=== PATIENT | female | born 1985 ===

== ENCOUNTER 2024-07-29 12:26 | Outpatient (CLI) | payer OTHER | END 2024-07-29 12:27 | disposition home or self-care (01) | LOC: PRENATAL 12:26 | PROVIDERS: ATTEND Obstetrics & Gynecology Maternal & Fetal Medicine | DX: O44.00 Complete placenta previa NOS or without hemorrhage, unspecified trimester (principal); O09.529 Supervision of elderly multigravida, unspecified trimester; O34.10 Maternal care for benign tumor of corpus uteri, unspecified trimester; Z3A.28 28 weeks gestation of pregnancy ==

== ENCOUNTER 2024-09-08 23:06 | Inpatient (IN) | payer OTHER ==
[~2024-09-08] VITALS: Ht 154.9 cm; Wt 73.5 kg
[2024-09-08 23:24] VITALS: BP 140/98; O2SAT 98
[2024-09-08] MEDS ORDERED: PRENATAL TABLE1 EAC4 PO (23:37)
[2024-09-08 23:56] LABS: PH,URINE 7.5 (5.0-8.0); URINE APPEARANCE Cloudy; URINE BILIRRUBIN Negative (NEGATIVE); URINE BLOOD Negative; URINE COLOR Dark Yellow; URINE GLUCOSE Negative (NEGATIVE); URINE KETONE Negative (NEGATIVE); URINE LEUKOCYTE Large; URINE NITRATE Negative; URINE PROTEIN Negative (NEGATIVE); URINE UROBILINOGEN 0.2 E.U./dl
[2024-09-08 23:58] LABS: HEMATOCRIT 32.2 % (36.0-45.00); HEMOGLOBIN 11.2 g/dL (12.0-15.00); MEAN CELL VOLUME 88.2 fL (80.00-100.00); MEAN CORPUSCULAR HEMOGLOBIN 30.8 pg (27.00-32.0); MEAN CORPUSCULAR HGB CONC 34.9 g/dl (32.0-36.0); PLATELET COUNT 131 K/uL (150-450); RED BLOOD COUNT 3.64 M/uL (4.00-6.00); RED CELL DISTRIBUTION WIDTH 14.3 % (11.5-14.5)
[2024-09-08 23:59] LABS: URINE BACTERIA 2898.2 uL (0.0-1933); URINE EPITHELIAL CELLS 133.4 uL (0.0-38.8); URINE WBC 369.1 uL (0.0-23.2)
[2024-09-09] VITALS (9 sets, daily range): BP systolic 123–139; BP diastolic 78–89
[2024-09-09] MEDS ORDERED: SODIUM CHLORIDE 0.45 % 1,000 ML IV SCH (00:15)
[2024-09-09 00:35] LABS: URINE CAST 0.44 uL (0.0-1.40); URINE RBC 1.7 uL (0.0-20.8)
[2024-09-09 00:55] LABS: ALBUMIN 2.6 gm/dL (3.4-5.0); BILIRUBIN TOTAL 0.33 mg/dL (0.3-1.2); CALCIUM 8.6 mg/dL (8.5-10.1); CREATININE SERUM 0.51 mg/dL (0.55-1.02); GFR 134.96; GLOBULINA 3.7 G/DL (2.4-3.5); POTASSIUM 3.74 mEq/L (3.5-5.1); TOTAL PROTEIN 6.3 gm/dL (6.4-8.2)
[2024-09-09 01:13] LABS: URIC ACID 3.9 mg/dL (2.5-7.5)
[2024-09-09 08:35] LABS: HEMOGLOBIN 11.2 g/dL (12.0-15.00); MEAN CELL VOLUME 88.5 fL (80.00-100.00); PLATELET COUNT 121 K/uL (150-450); RED BLOOD COUNT 3.62 M/uL (4.00-6.00); RED CELL DISTRIBUTION WIDTH 14.4 % (11.5-14.5)
[2024-09-09] MEDS ORDERED: BETAMETHASONE ACETATE,SOD PHOS 30 MG/5 ML ML IM SCH (12:45)
[2024-09-10 03:24] VITALS: BP 122/83; O2SAT 98
[2024-09-10 06:55] LABS: HEMATOCRIT 33.6 % (36.0-45.00); HEMOGLOBIN 11.2 g/dL (12.0-15.00); MEAN CELL VOLUME 90.2 fL (80.00-100.00); MEAN CORPUSCULAR HGB CONC 33.3 g/dl (32.0-36.0); PLATELET COUNT 135 K/uL (150-450); RED BLOOD COUNT 3.73 M/uL (4.00-6.00); RED CELL DISTRIBUTION WIDTH 14.3 % (11.5-14.5)
[2024-09-10 07:54] LABS: ALT/SGPT 13 U/L (12-78); AST/SGOT 15 U/L (15-37)
[2024-09-10 08:04] VITALS: BP 124/82
[2024-09-10 12:00] VITALS: BP 130/86
[2024-09-10 14:44] LABS: URINE PROT QUANT 24HR 8.2 MG/DL
[2024-09-10 14:48] LABS: URINE PROT QUANT 24 HR 381.3 MG/24HR (42-225)
[2024-09-10 15:08] VITALS: BP 122/78
== END 2024-09-10 19:18 | disposition home or self-care (01) | DRG 833 ==
LOC: OBS/DEL 23:06 → LDR 09-09 21:36 → OB/GYN 09-10 15:37 → LDR 09-10 15:39
PROVIDERS: ADMIT Obstetrics & Gynecology; ATTEND Obstetrics & Gynecology
PROC: 4A1HXCZ Monitoring of Products of Conception, Cardiac Rate, External Approach (ICD-10-PCS; principal; 2024-09-09)
PROC: BY4FZZZ Ultrasonography of Third Trimester, Single Fetus (ICD-10-PCS; 2024-09-09)
DX: O13.3 Gestational [pregnancy-induced] hypertension without significant proteinuria, third trimester (principal); O26.843 Uterine size-date discrepancy, third trimester; O36.8130 Decreased fetal movements, third trimester, not applicable or unspecified; O34.13 Maternal care for benign tumor of corpus uteri, third trimester; D25.9 Leiomyoma of uterus, unspecified; O14.03 Mild to moderate pre-eclampsia, third trimester; Z3A.34 34 weeks gestation of pregnancy

== ENCOUNTER 2024-09-17 16:49 | Outpatient (CLI) | payer OTHER ==
[~2024-09-17] VITALS: Ht 154.9 cm; Wt 73.5 kg
[~2024-09-17 16:49] MED LIST: PRENATAL TABLE1 EAC4 PO
[2024-09-17 17:15] VITALS: BP 132/87
[2024-09-17] MEDS ORDERED: RINGERS SOLUTION,LACTATED 1,000 ML IV SCH (18:00)
[2024-09-17] MEDS ORDERED: SYNTHROID50 MCG PO (18:33)
[2024-09-17 18:43] LABS: HEMOGLOBIN 11.5 g/dL (12.0-15.00); MEAN CORPUSCULAR HEMOGLOBIN 29.7 pg (27.00-32.0); MEAN CORPUSCULAR HGB CONC 33.8 g/dl (32.0-36.0); PLATELET COUNT 139 K/uL (150-450); RED BLOOD COUNT 3.87 M/uL (4.00-6.00); RED CELL DISTRIBUTION WIDTH 14.8 % (11.5-14.5)
[2024-09-17 18:49] LABS: URINE APPEARANCE Cloudy; URINE BILIRRUBIN Negative (NEGATIVE); URINE BLOOD Negative; URINE COLOR Yellow; URINE GLUCOSE Negative (NEGATIVE); URINE KETONE Negative (NEGATIVE); URINE LEUKOCYTE Large; URINE NITRATE Negative; URINE PROTEIN Negative (NEGATIVE); URINE UROBILINOGEN 0.2 E.U./dl
[2024-09-17 18:53] LABS: URINE EPITHELIAL CELLS 87.7 uL (0.0-38.8); URINE WBC 464.2 uL (0.0-23.2)
[2024-09-17 19:05] LABS: URINE CAST 1.03 uL (0.0-1.40); URINE RBC 1.1 uL (0.0-20.8)
[2024-09-17 19:14] LABS: ALT/SGPT 15 U/L (12-78); AST/SGOT 16 U/L (15-37)
[2024-09-17 23:26] VITALS: BP 128/81
[2024-09-18 07:24] VITALS: BP 112/73
[2024-09-18 09:37] VITALS: BP 112/73
== END 2024-09-18 09:43 | disposition home or self-care (01) ==
LOC: OBS/DEL 16:49
PROVIDERS: ATTEND Obstetrics & Gynecology
DX: O26.893 Other specified pregnancy related conditions, third trimester (principal); O36.8130 Decreased fetal movements, third trimester, not applicable or unspecified; Z3A.35 35 weeks gestation of pregnancy

== ENCOUNTER → 2024-09-23 | Outpatient (CLI) | payer OTHER ==
[~2024-09-23] MED LIST changes: +SYNTHROID50 MCG PO
== END | disposition home or self-care (01) ==
LOC: PRENATAL 10:21
PROVIDERS: ATTEND Obstetrics & Gynecology Maternal & Fetal Medicine
DX: O26.849 Uterine size-date discrepancy, unspecified trimester (principal); O36.8199 Decreased fetal movements, unspecified trimester, other fetus; Z3A.35 35 weeks gestation of pregnancy

== ENCOUNTER 2024-09-27 13:31 | Inpatient (IN) | payer OTHER ==
[~2024-09-27] VITALS: Ht 152.4 cm; Wt 74.4 kg
[2024-09-28] MEDS ORDERED: SODIUM CHLORIDE 0.45 % 1,000 ML IV SCH (19:15)
[2024-09-28] MEDS ORDERED: ACETAMINOPHEN 500 MG GEL..CAP PO PRN (19:15)
[2024-09-28 19:40] VITALS: BP 142/87
[2024-09-28] MEDS ORDERED: CEFAZOLIN SODIUM 1,000 MG VIAL IV SCH (20:00)
[2024-09-28 23:04] VITALS: BP 133/82
[2024-09-29 03:49] VITALS: BP 130/85
[2024-09-29] MEDS ORDERED: LEVOTHYROXINE SODIUM 50 MCG TABLET PO SCH (06:00)
[2024-09-29 06:03] VITALS: BP 122/83; O2SAT 99
[2024-09-29 11:43] VITALS: BP 131/67; O2SAT 98
[2024-09-29] MEDS ORDERED: ERYTHROMYCIN BASE OPHT 1GM EACH TUBE OP ONE (14:22)
[2024-09-29] MEDS ORDERED: OXYTOCIN 10 UNITS/ML VIAL ONE (14:22)
[2024-09-29] MEDS ORDERED: POVIDONE-IODINE 118 ML BOTT TOP ONE (14:40)
[2024-09-29] MEDS ORDERED: KETOROLAC TROMETHAMINE 60 MG VIAL IM STA (16:09)
[2024-09-29] MEDS ORDERED: RINGERS SOLUTION,LACTATED 1,000 ML IV SCH ×2 (16:15→22:15)
[2024-09-29] MEDS ORDERED: MORPHINE SULFATE 4 MG/ML VIAL IV ONE ×2 (17:35→18:05)
[2024-09-29] MEDS ORDERED: KETOROLAC TROMETHAMINE 60 MG VIAL IM ONE ×2 (18:35→18:36)
[2024-09-29] MEDS ORDERED: CEFAZOLIN SODIUM 1,000 MG VIAL ONE (20:02)
[2024-09-29 21:52] VITALS: BP 150/80
[2024-09-29] MEDS ORDERED: OXYTOCIN 1,000 ML IV SCH (22:15)
[2024-09-29] MEDS ORDERED: MORPHINE SULFATE 4 MG/ML VIAL IV PRN (22:15)
[2024-09-29] MEDS ORDERED: CHLORHEXIDINE GLUCONATE 120 ML BOTTLE TOP ONE (22:15)
[2024-09-29 23:11] LABS: HEMATOCRIT 33.1 % (36.0-45.00); HEMOGLOBIN 11.2 g/dL (12.0-15.00); MEAN CELL VOLUME 89.3 fL (80.00-100.00); MEAN CORPUSCULAR HEMOGLOBIN 30.1 pg (27.00-32.0); MEAN CORPUSCULAR HGB CONC 33.8 g/dl (32.0-36.0); RED BLOOD COUNT 3.71 M/uL (4.00-6.00); RED CELL DISTRIBUTION WIDTH 14.8 % (11.5-14.5)
[2024-09-29 23:39] LABS: PLATELET COUNT 122 K/uL (150-450)
[2024-09-30 00:56] VITALS: BP 133/85
[2024-09-30 08:00] VITALS: BP 139/80
[2024-09-30] MEDS ORDERED: ACETAMINOPHEN WITH CODEINE 1 UDTAB TABLET PO PRN (09:00)
[2024-09-30 16:00] VITALS: BP 139/85
[2024-09-30] MEDS ORDERED: BISACODYL 10 MG/SUPP.RECT SUPP.RECT RECTAL STA (21:55)
[2024-10-01 00:34] VITALS: BP 129/89
[2024-10-01 08:00] VITALS: BP 125/82
== END 2024-10-01 12:04 | disposition home or self-care (01) | DRG 785 ==
LOC: LDR 13:31 → OB/GYN 09-29 17:10
PROVIDERS: ADMIT Obstetrics & Gynecology; ATTEND Obstetrics & Gynecology
PROC: 4A1HXCZ Monitoring of Products of Conception, Cardiac Rate, External Approach (ICD-10-PCS; 2024-09-28)
PROC: 0UB70ZZ Excision of Bilateral Fallopian Tubes, Open Approach (ICD-10-PCS; 2024-09-29)
PROC: 10D00Z1 Extraction of Products of Conception, Low, Open Approach (ICD-10-PCS; principal; 2024-09-29 14:30)
DX: O13.4 Gestational [pregnancy-induced] hypertension without significant proteinuria, complicating childbirth (principal); O14.04 Mild to moderate pre-eclampsia, complicating childbirth; O34.13 Maternal care for benign tumor of corpus uteri, third trimester; D25.9 Leiomyoma of uterus, unspecified; O60.14X0 Preterm labor third trimester with preterm delivery third trimester, not applicable or unspecified; Z3A.36 36 weeks gestation of pregnancy; Z37.0 Single live birth; Z30.2 Encounter for sterilization

== ENCOUNTER 2024-09-27 19:51 | Outpatient (CLI) | payer OTHER ==
[~2024-09-27] VITALS: Ht 152.4 cm; Wt 74.4 kg
[2024-09-27 19:30] VITALS: BP 139/92
[2024-09-27] MEDS ORDERED: SODIUM CHLORIDE 0.45 % 1,000 ML IV SCH (20:15)
[2024-09-27 20:37] LABS: URINE APPEARANCE Cloudy; URINE BILIRRUBIN Negative (NEGATIVE); URINE BLOOD Negative; URINE COLOR Yellow; URINE GLUCOSE Negative (NEGATIVE); URINE KETONE Negative (NEGATIVE); URINE LEUKOCYTE Moderate; URINE NITRATE Negative; URINE PROTEIN Trace (NEGATIVE); URINE UROBILINOGEN 0.2 E.U./dl
[2024-09-27 20:39] LABS: HEMATOCRIT 33.3 % (36.0-45.00); HEMOGLOBIN 11.4 g/dL (12.0-15.00); MEAN CELL VOLUME 88.6 fL (80.00-100.00); MEAN CORPUSCULAR HEMOGLOBIN 30.3 pg (27.00-32.0); MEAN CORPUSCULAR HGB CONC 34.2 g/dl (32.0-36.0); RED BLOOD COUNT 3.76 M/uL (4.00-6.00); RED CELL DISTRIBUTION WIDTH 14.7 % (11.5-14.5)
[2024-09-27 20:40] LABS: URINE BACTERIA 2729.2 uL (0.0-1933); URINE WBC 306.1 uL (0.0-23.2)
[2024-09-27 20:44] LABS: INR < 0.93; PARTIAL THROMBOPLASTIN TIME 24.8 SECONDS (22.0-34.0)
[2024-09-27 20:48] LABS: PLATELET COUNT 121 K/uL (150-450)
[2024-09-27 20:49] LABS: ALBUMIN 2.5 gm/dL (3.4-5.0); BILIRUBIN TOTAL 0.31 mg/dL (0.3-1.2); CALCIUM 8.9 mg/dL (8.5-10.1); CREATININE SERUM 0.59 mg/dL (0.55-1.02); GFR 114.07; GLOBULINA 3.9 G/DL (2.4-3.5); POTASSIUM 3.84 mEq/L (3.5-5.1); TOTAL PROTEIN 6.4 gm/dL (6.4-8.2)
[2024-09-27 21:12] LABS: URINE CAST 0.44 uL (0.0-1.40); URINE RBC 1.6 uL (0.0-20.8)
[2024-09-27] MEDS ORDERED: CEFAZOLIN SODIUM 1,000 MG VIAL IV SCH (21:28)
[2024-09-27 21:30] VITALS: BP 128/80
[2024-09-27 23:07] VITALS: BP 126/85
[2024-09-28 03:05] VITALS: BP 139/89
[2024-09-28] MEDS ORDERED: LEVOTHYROXINE SODIUM 50 MCG TABLET PO SCH (06:00)
[2024-09-28 06:07] VITALS: BP 132/91; O2SAT 99
[2024-09-28] MEDS ORDERED: PNV,CALCIUM 72/IRON/FOLIC ACID 1 TAB TABLET PO SCH (09:00)
[2024-09-28 11:05] VITALS: BP 127/84; O2SAT 99
[2024-09-28 14:03] LABS: HEMATOCRIT 33.2 % (36.0-45.00); HEMOGLOBIN 11.4 g/dL (12.0-15.00); MEAN CELL VOLUME 89.6 fL (80.00-100.00); MEAN CORPUSCULAR HEMOGLOBIN 30.6 pg (27.00-32.0); MEAN CORPUSCULAR HGB CONC 34.1 g/dl (32.0-36.0); RED BLOOD COUNT 3.71 M/uL (4.00-6.00); RED CELL DISTRIBUTION WIDTH 14.9 % (11.5-14.5)
[2024-09-28 14:05] LABS: PLATELET COUNT 121 K/uL (150-450)
[2024-09-28 15:12] VITALS: BP 130/85
[2024-09-28] MEDS ORDERED: ACETAMINOPHEN 500 MG GEL..CAP PO ONE (18:53)
[2024-09-28] MEDS ORDERED: ACETAMINOPHEN 500 MG GEL..CAP PO PRN (19:00)
== END 2024-09-28 19:11 | disposition still patient (30) ==
LOC: OBS/DEL 19:51
PROVIDERS: ATTEND Obstetrics & Gynecology
DX: O26.893 Other specified pregnancy related conditions, third trimester (principal)